=== PATIENT | male | born 1945 | race Native Hawaiian/Other Pacific Islander ===

== ENCOUNTER 2016-06-10 11:09 | Outpatient (CLI) | payer OTHER ==
[2016-06-10] MEDS ORDERED: PROP40TA53 PO (11:36)
[2016-06-10] MEDS ORDERED: OMEPRAZOLE20 M1 OR (11:37)
[2016-06-10] MEDS ORDERED: SPIRONOLACT25 MG PO (11:37)
[2016-06-11] MEDS ORDERED: FOLI1TAB26 PO (08:12)
[2016-06-11] MEDS ORDERED: UNITH DIRECT100 MCG PO (08:13)
== END 2016-06-10 11:10 | disposition short-term general hospital (02) ==
LOC: AMB 11:09
DX: M95.0 Acquired deformity of nose (principal); S01.21XA Laceration without foreign body of nose, initial encounter; W19.XXXA Unspecified fall, initial encounter; Y92.481 Parking lot as the place of occurrence of the external cause
CPT/HCPCS: A0425; A0429

== ENCOUNTER 2016-06-10 11:12 | Inpatient (IN) | payer OTHER ==
[~2016-06-10] VITALS: Ht 165.1 cm; Wt 64.0 kg
--- NOTE | 2016-06-10 00:30 | NUR ---
NEURO CHECK COMPLETED AT THIS TIME. NO ACUTE DEFICITS NOTED. DAUGTHER IS AT THE BEDSIDE. NO ACUTE COMPLAINS VOICED AT THIS TIME.
[2016-06-10 11:34] VITALS: BP 138/88; TEMP 98.2
[2016-06-10] MEDS ORDERED: PROP40TA53 PO (11:36)
[2016-06-10] MEDS ORDERED: SPIRONOLACT25 MG PO (11:37)
[2016-06-10] MEDS ORDERED: OMEPRAZOLE20 M1 OR (11:37)
[2016-06-10 12:06] LABS: POTASSIUM 3.8 mmol/L (3.6-5.2); SODIUM 129 mmol/L (136-145)
[2016-06-10 12:09] LABS: PLATELET COUNT 72 K/uL (142-355)
[2016-06-10 12:22] LABS: PARTIAL THROMBOPLASTIN TIME 29.2 SECONDS (24.5-33.6)
[2016-06-10 17:36] VITALS: BP 113/63; TEMP 97; Ht 165.1 cm; Wt 64.0 kg
--- NOTE | 2016-06-10 20:00 | NUR ---
NEURO CHECK COMPLETED AT THIS TIME. NO ACUTE DEFICITS NOTED. COMMUNICATED WITH WRITING BOARD. PATIENT DENIES PAIN AT THIS TIME. FAMILY AT THE BEDSIDE.
--- NOTE | 2016-06-10 20:30 | NUR ---
PATIENT IS EATING SUPPER FAMILY MEMEBERS BROUGHT IN FOR HIM. PATIENT IS PLEASENT AND COOPERATIVE.
[2016-06-10 20:34] VITALS: BP 114/61; TEMP 98.1
[2016-06-11 00:16] VITALS: BP 108/66; TEMP 98.9
--- NOTE | 2016-06-11 04:45 | NUR ---
NEURO CHECK ASSESSMENT COMPLETED AT THIS TIME. NO ACUTE DISTRESS NOTED.
[2016-06-11 04:56] LABS: PLATELET COUNT 63 K/uL (142-355)
--- NOTE | 2016-06-11 05:00 | NUR ---
PATIENT AWAKE STATES HIS HEAD IS HURTING. DAUGHTER AT THE BEDSIDE STATED HER FATHER NEEDED SOMETHING FOR PAIN. SHE STATED HE COULD ONLY TAKE OXYCODONE WITHOUT THE TYLENOL. CALLED AND NEW ORDER GIVEN AT THIS TIME.
[2016-06-11 05:08] LABS: POTASSIUM 3.7 mmol/L (3.6-5.2)
--- NOTE | 2016-06-11 05:20 | NUR ---
INFORMED DAUGHTER THAT GAVE NEW ORDERS. DAUGHTER STATED " HE IS ASLEEP NOW, WE WILL JUST WAIT WHEN HE WAKES UP AGAIN".
[2016-06-11 05:46] VITALS: BP 109/67; TEMP 99
[2016-06-11 08:00] VITALS: BP 111/59; TEMP 98.3
[2016-06-11] MEDS ORDERED: FOLI1TAB26 PO (08:12)
[2016-06-11] MEDS ORDERED: UNITH DIRECT100 MCG PO (08:13)
[2016-06-11 12:00] VITALS: BP 109/59; TEMP 98.9
[2016-06-11 20:00] VITALS: BP 98/51; TEMP 98.4
[2016-06-11 23:55] VITALS: BP 94/48; TEMP 98.4
[2016-06-12 04:00] VITALS: BP 96/48; TEMP 98.5
[2016-06-12 04:26] LABS: PLATELET COUNT 74 K/uL (142-355)
[2016-06-12 04:47] LABS: POTASSIUM 3.8 mmol/L (3.6-5.2)
[2016-06-13 01:20] VITALS: BP 106/53; TEMP 98.4
[2016-06-13 04:35] LABS: PLATELET COUNT 91 K/uL (142-355)
[2016-06-13 05:03] LABS: POTASSIUM 3.8 mmol/L (3.6-5.2)
--- NOTE | 2016-06-13 09:16 | NUR ---
DC INSTRUCTIONS GIVEN TO FAMILY AND PT. PT HAS APPT WITH DR MILLER TODAY AT 1330. IV DC'D WITH CANNULA INTACT AND SITE CARE PROVIDED. NAD NOTED.
--- NOTE | 2016-06-13 10:11 | NUR ---
PT LEFT VIA WC WITH FAMILY AT THIS TIME. NAD NOTED.
== END 2016-06-13 10:11 | disposition home or self-care (01) | DRG 133 ==
LOC: ED 11:12 → MED/SURG 13:55
PROVIDERS: Emergency Medicine; ADMIT Specialist
PROC: 09QKXZZ Repair Nasal Mucosa and Soft Tissue, External Approach (ICD-10-PCS; principal; 2016-06-10)
PROC: 2Y41X5Z Packing of Nasal Region using Packing Material (ICD-10-PCS; 2016-06-10)
DX: S02.2XXA Fracture of nasal bones, initial encounter for closed fracture (principal); R18.8 Other ascites; W19.XXXA Unspecified fall, initial encounter; Y93.89 Activity, other specified; Y92.481 Parking lot as the place of occurrence of the external cause; K72.90 Hepatic failure, unspecified without coma; R55 Syncope and collapse; S01.21XA Laceration without foreign body of nose, initial encounter; D46.Z Other myelodysplastic syndromes; R04.0 Epistaxis; R19.5 Other fecal abnormalities
CPT/HCPCS: 36415; 80053; 82140; 82272; 82550; 83735; 84484; 85007; 85027; 85610; 85730; 93005; 96365; 96366; 96372; 99284; J0690; J2060; J3430; J3475; J7040